=== PATIENT | male | born 1995 | race Caucasian/White ===

== ENCOUNTER 2016-08-25 18:44 | Emergency (ER) | payer MEDICAID ==
[~2016-08-25] VITALS: Ht 167.6 cm; Wt 64.0 kg
[2016-08-25 18:58] VITALS: BP 130/66
--- NOTE | 2016-08-25 19:03 | NUR ---
PATIENT AMBULATED TO ER BED 4.
--- NOTE | 2016-08-25 19:28 | NUR ---
PATIENT PRESENTS TO ED WITH C/O PAIN TO PENIS X2DAYS . PT STATES HE NOTICED A PIMPLE ON HIS PENIS 2 DAYS AGO AND SINCE HAS HAD A STUFFED NOSE AND COUGH AND FEELS LIKE HE HAS A FEVER. CURRENT TEMP IS 98.3 AT THIS TIME . DENIES N/V/D; SKIN IS PINK/WARM/DRY; AAOX4 WITH EVEN AND STEADY GAIT; LUNGS CLEAR BL; HR EVEN AND REGULAR; PT DENIES ANY CP OR SOB AT THIS TIME; PATIENT STATES PAIN OF 2/10 AT THIS TIME; VSS; PATIENT POSITIONED FOR COMFORT; HOB ELEVATED; BEDRAILS UP X2; BED DOWN. ER MD MADE AWARE OF PT STATUS.
--- NOTE | 2016-08-25 19:40 | NUR ---
Patient being evaluated by physician at bedside.
[2016-08-25 19:49] VITALS: BP 128/70
--- NOTE | 2016-08-25 19:49 | NUR ---
Patient discharged with v/s stable. Written and verbal after care instructions given and explained. Patient verbalized understanding. Ambulatory with steady gait. All questions addressed prior to discharge. Advised to follow up with PMD.
== END 2016-08-25 19:49 | disposition home or self-care (01) ==
LOC: MED 18:44
DX: N48.21 Abscess of corpus cavernosum and penis (principal)
CPT/HCPCS: 99283